=== PATIENT | female | born 1995 | race Caucasian/White ===

== ENCOUNTER 2017-01-24 20:51 | Emergency (ER) | payer MEDICAID, OTHER ==
[~2017-01-24] VITALS: Ht 160 cm; Wt 98.7 kg
[~2017-01-24 20:51] MED LIST: CIPR500T4 PO; FERR324T4 PO; PERC7.5T13 PO
[2017-01-24 20:56] VITALS: BP 137/77; PULSE 90; RESP 20; TEMP 98.3; O2SAT 100
[2017-01-24 21:20] VITALS: BP 117/71; PULSE 90; RESP 18; O2SAT 100
[2017-01-24] MEDS ORDERED: IBUP-232 PO (21:26)
[2017-01-24] MEDS ORDERED: PNV11TAB PO (21:26)
[2017-01-24] MEDS ORDERED: PERC5TAB12 PO (21:26)
--- NOTE | 2017-01-24 21:30 | PD ---
HPI Chief Complaint: Pain: Acute or Chronic Time Seen by Provider: 21:00 Travel History International Travel<30 days: No Contact w/Intl Traveler<30days: No Traveled to known affect area: No History of Present Illness HPI The patient is a 21-year-old female that at 3 PM today picked her daughter up and felt a pain along the left portion of her scar. The patient had a [address] Carrasco is her sales program manager. This was done at [facility]. She denies any nausea, vomiting or fever. The patient does have a history of kidney stones in the past but this is almost in the midline suprapubic area and involving the incision, slightly above the incision. She states the pain is a searing pain. She did not call Dr. Carrasco. She has not had any increased bleeding from the vagina. The patient also felt a similar pain earlier today when she got out of bed. PFSH Past Medical History ADHD: Yes Anemia: Yes Asthma: Yes Blood Disorders: No Anxiety: Yes Depression: Yes Heart Rhythm Problems: No Cancer: No Cardiovascular Problems: No High Cholesterol: No Chemotherapy: No Chest Pain: No Congestive Heart Failure: No COPD: No Diabetes: No Diminished Hearing: No Endocrine: No Gastrointestinal Disorders: No Genitourinary: Yes Hiatal Hernia: No Hypertension: No Immune Disorder: No Kidney Stones: Yes (TWICE BEFORE) Musculoskeletal: No Neurologic: Yes Psychiatric: No Reproductive: No Respiratory: Yes (ASTHMA, NO CURRENT PROBLEMS) Immunizations Current: Yes Radiation Therapy: No Seizures: Yes (1 SEIZURE A CHILD FROM FEVER) Sleep Apnea: No Thyroid Disease: No ?: Not : 0 Para: 0 Miscarriage: 0 : 0 Past Surgical History Body Medical Devices: URETER STENT Genitourinary Surgery: Yes (LITHOTRIPSY 02/04/13, LITHOTRIPSY: FEB, 2014) Other Surgery: No Social History Alcohol Use: Yes (RARELY) Tobacco Use: No Substance Use: No Allergies-Medications (Allergen,Severity, Reaction): Coded Allergies: Sulfa (Sulfonamide Antibiotics) (Unverified Allergy, Severe, RASH, VOMITING, 12/19/16) penicillin G (Unverified Allergy, Severe, Anaphylaxis, 12/19/16) amoxicillin (Unverified Adverse Reaction, Severe, Nausea/Vomiting, 12/19/16 ) Reported Meds & Prescriptions Reported Meds & Active Scripts Active Cipro (Ciprofloxacin HCl) 500 Mg Tab 500 Mg PO BID Cipro (Ciprofloxacin HCl) 500 Mg Tab 500 Mg PO BID Ferrous Sulfate 324 Mg Tab 324 Mg PO TID Percocet 7.5-325 mg (Oxycodone-Acetaminophen 7.5-325 mg) Oxycodone 7.5/325 Acetaminophen Tab 1-2 Tab PO Q4H PRN FOR PAIN Review of Systems Except as stated in HPI: all other systems reviewed are Neg Physical Exam Narrative GENERAL: The patient is alert, oriented 3 and moderate apparent distress with her incisional pain. Her vital signs are normal. The patient is comfortable at rest. SKIN: Focused skin assessment warm/dry. The incision shows no erythema, appears clean and no masses are noted around the incision on palpation. There is tenderness slightly to the right of midline on her incision. There is no drainage from the incision. HEAD: Atraumatic. Normocephalic. EYES: Pupils equal and round. No scleral icterus. No injection or drainage. ENT: No nasal bleeding or discharge. Mucous membranes pink and moist. NECK: Trachea midline. No JVD. CARDIOVASCULAR: Regular rate and rhythm. No murmur appreciated. RESPIRATORY: No accessory muscle use. Clear to auscultation. Breath sounds equal bilaterally. GASTROINTESTINAL: Abdomen soft, with slight tenderness above slightly to the right of midline of the incision to direct palpation, nondistended. Hepatic and splenic margins not palpable. No guarding or rebound is present. MUSCULOSKELETAL: No obvious deformities. No clubbing. No cyanosis. No edema. NEUROLOGICAL: Awake and alert. No obvious cranial nerve deficits. Motor grossly within normal limits. Normal speech. PSYCHIATRIC: Appropriate mood and affect; insight and judgment normal. Data Data Last Documented VS Vital Signs Date Time Temp Pulse Resp B/P (MAP) Pulse Ox O2 Delivery O2 Flow Rate FiO2 01/24/17 20:56 98.3 90 20 137/77 (97) 100 MDM Medical Decision Making Medical Screen Exam Complete: Yes Emergency Medical Condition: Yes Medical Record Reviewed: Yes Differential Diagnosis Wound dehiscence, infected incision, failure to adequately rest postop Narrative Course The patient is likely overdoing her movements. She needs to rest and stay in bed. She can call Dr. Swift. Tomorrow morning. Tonight we will give her 1 mg Dilaudid and 4 mg Zofran IM. She will take 2 of the Percocet 5/325 every 4 hours, she is used to this amount of narcotics because she gets narcotics regularly for kidney stones. The patient is comfortable at rest and she should stay in bed tonight. She will not need some much pain medications that she simply stays in bed. Impression: Noncompliance to rest-incisional pain. Diagnosis Primary Impression: Incisional pain Additional Instructions: Stay in bed. The usual reason this happens is because you were overdoing it. Call Dr. Carrasco's office tomorrow. As you have been doing, take 2 Percocets every 4 hours if you needed for pain. Your incision will heal if you allow to heal. Med/Other Pt SpecificInfo: No Change to Meds Disposition: 01 DISCHARGE HOME Condition: Stable Bernabe Pickard MD Jan 24, 2017 21:30
[2017-01-24] MEDS ORDERED: ONDANSETRON HCL 4 MG/2 ML VIAL IM ONE (21:45)
[2017-01-24] MEDS ORDERED: HYDROmorphone HCL PF 1 MG/ML VIAL IM ONE (21:45)
[2017-01-24 22:08] VITALS: BP 118/59; PULSE 86; RESP 16; O2SAT 99
[2017-01-24 22:18] VITALS: RESP 16
== END 2017-01-24 22:25 | disposition home or self-care (01) ==
LOC: PHED 20:51
DX: O90.89 Other complications of the puerperium, not elsewhere classified (principal); G89.18 Other acute postprocedural pain; Z91.19 Patient's noncompliance with other medical treatment and regimen
CPT/HCPCS: 96372; 99284; J1170; J2405

== ENCOUNTER 2017-06-20 16:12 | Observation (INO) | payer MEDICAID ==
[~2017-06-20] VITALS: Ht 160 cm; Wt 101.0 kg
[2017-06-20] VITALS (7 sets, daily range): BP systolic 109–134; BP diastolic 58–76; PULSE 56–83; RESP 16–20; TEMP 97.8–98.5; O2SAT 99–100
[~2017-06-20 16:12] MED LIST changes: -CIPR500T4 PO; -FERR324T4 PO; +IBUP-232 PO; +PERC5TAB12 PO; -PERC7.5T13 PO; +PNV11TAB PO
[2017-06-20] MEDS ORDERED: ONDANSETRON HCL 4 MG/2 ML VIAL IVP ONE (18:15)
[2017-06-20] MEDS ORDERED: MORPHINE SULFATE 2 MG/ML INJ IV PUSH ONE (18:15)
[2017-06-20] MEDS ORDERED: SODIUM CHLORIDE 0.9% FLUSH 10 ML FLUSH IV FLUSH PRN ×2 (18:15→20:15)
--- NOTE | 2017-06-20 18:18 | PD ---
HPI Chief Complaint: Abdominal Pain Time Seen by Provider: 18:14 Travel History International Travel<30 days: No Contact w/Intl Traveler<30days: No Traveled to known affect area: No History of Present Illness HPI 21-year-old female here for evaluation of vertigo quadrant abdominal pain. The patient reports intermittent episodes of right upper quadrant pain that radiates to her back. She usually notices this pain after eating breakfast. Today at around 3 PM she ate a cookie and has had constant pain since then. Pain is severe, constant, sharp, worse with movements. She has felt nauseous but has not vomited today. No fever. No dysuria. Patient has had history of nephrolithiasis asked ureterolithiasis requiring lithotripsy. She states that this pain feels different. PFSH Past Medical History ADHD: Yes Anemia: Yes Asthma: Yes Blood Disorders: No Anxiety: Yes Depression: Yes Heart Rhythm Problems: No Cancer: No Cardiovascular Problems: No High Cholesterol: No Chemotherapy: No Chest Pain: No Congestive Heart Failure: No COPD: No Diabetes: No Diminished Hearing: No Endocrine: No Gastrointestinal Disorders: No Genitourinary: Yes Hiatal Hernia: No Hypertension: No Immune Disorder: No Implanted Vascular Access Dvce: Yes Kidney Stones: Yes (TWICE BEFORE) Musculoskeletal: No Neurologic: Yes Psychiatric: No Reproductive: No Respiratory: Yes (HX ASTHMA, NO CURRENT PROBLEMS) Immunizations Current: Yes Radiation Therapy: No Seizures: Yes (1 SEIZURE A CHILD FROM FEVER) Sleep Apnea: No Thyroid Disease: No Tetanus Vaccination: < 5 Years Influenza Vaccination: No ?: Not LMP: 06/12/17 : 1 Para: 1 Miscarriage: 0 : 0 Past Surgical History Body Medical Devices: URETER STENT Section: Yes (01/20/17) Genitourinary Surgery: Yes (LITHOTRIPSY 02/04/13, LITHOTRIPSY: FEB, 2014) Other Surgery: No Social History Alcohol Use: Yes (RARELY) Tobacco Use: No Substance Use: No Allergies-Medications (Allergen,Severity, Reaction): Coded Allergies: Sulfa (Sulfonamide Antibiotics) (Unverified Allergy, Severe, RASH, VOMITING, 06/20/17) penicillin G (Unverified Allergy, Severe, Anaphylaxis, 06/20/17) amoxicillin (Unverified Adverse Reaction, Severe, Nausea/Vomiting, 06/20/17 ) Reported Meds & Prescriptions Reported Meds & Active Scripts Active Review of Systems Except as stated in HPI: all other systems reviewed are Neg Physical Exam Narrative GENERAL: Well-developed, well-nourished, overweight, no apparent distress. SKIN: Focused skin assessment warm/dry. No rash. HEAD: Atraumatic. Normocephalic. EYES: Pupils equal and round. No scleral icterus. No injection or drainage. ENT: Mucous membranes pink and moist. NECK: Trachea midline. No JVD. CARDIOVASCULAR: Regular rate and rhythm. No murmur appreciated. RESPIRATORY: No accessory muscle use. Clear to auscultation. Breath sounds equal bilaterally. GASTROINTESTINAL: Abdomen soft, nondistended. Moderate right upper quadrant tenderness without peritoneal signs. Rest of abdomen is soft and nontender. Normal bowel sounds. MUSCULOSKELETAL: No obvious deformities. No clubbing. No cyanosis. No edema. NEUROLOGICAL: Awake and alert. No obvious cranial nerve deficits. Motor grossly within normal limits. Normal speech. PSYCHIATRIC: Appropriate mood and affect; insight and judgment normal. Data Data Last Documented VS Vital Signs Date Time Temp Pulse Resp B/P (MAP) Pulse Ox O2 Delivery O2 Flow Rate FiO2 06/20/17 19:00 18 06/20/17 19:00 59 117/71 (86) 100 Room Air 06/20/17 16:22 97.8 Orders Orders Complete Blood Count With Diff (06/20/17 18:14) Comprehensive Metabolic Panel (06/20/17 18:14) Lipase (06/20/17 18:14) Prothrombin Time / Inr (Pt) (06/20/17 18:14) Act Partial Throm Time (Ptt) (06/20/17 18:14) Urinalysis - C+S If Indicated (06/20/17 18:14) Us Abdomen Gallbladder (06/20/17 ) Iv Access Insert/Monitor (06/20/17 18:14) Ecg Monitoring (06/20/17 18:14) Oximetry (06/20/17 18:14) Ondansetron Inj (Zofran Inj) (06/20/17 18:15) Sodium Chlor 0.9% 1000 Ml Inj (Ns 1000 M (06/20/17 18:14) Sodium Chloride 0.9% Flush (Ns Flush) (06/20/17 18:15) Ed Urine Pregnancytest Poc (06/20/17 18:14) Morphine Inj (Morphine Inj) (06/20/17 18:15) Ciprofloxacin 400 Mg Premix (Cipro 400 M (06/20/17 19:45) Metronidazole 500 Mg Inj (Flagyl 500 Mg (06/20/17 19:45) Labs Laboratory Tests Test 06/20/17 18:30 White Blood Count 6.3 TH/MM3 Red Blood Count 4.47 MIL/MM3 Hemoglobin 12.2 GM/DL Hematocrit 36.4 % Mean Corpuscular Volume 81.5 FL Mean Corpuscular Hemoglobin 27.2 PG Mean Corpuscular Hemoglobin Concent 33.4 % Red Cell Distribution Width 14.4 % Platelet Count 461 TH/MM3 Mean Platelet Volume 7.0 FL Neutrophils (%) (Auto) 54.5 % Lymphocytes (%) (Auto) 36.1 % Monocytes (%) (Auto) 5.4 % Eosinophils (%) (Auto) 1.8 % Basophils (%) (Auto) 2.2 % Neutrophils # (Auto) 3.5 TH/MM3 Lymphocytes # (Auto) 2.3 TH/MM3 Monocytes # (Auto) 0.3 TH/MM3 Eosinophils # (Auto) 0.1 TH/MM3 Basophils # (Auto) 0.1 TH/MM3 CBC Comment DIFF FINAL Differential Comment Prothrombin Time 10.1 SEC Prothromb Time International Ratio 1.0 RATIO Activated Partial Thromboplast Time 26.8 SEC Urine Color STRAW Urine Turbidity CLEAR Urine pH 6.0 Urine Specific [place] 1.010 Urine Protein NEG mg/dL Urine Glucose (UA) NEG mg/dL Urine Ketones NEG mg/dL Urine Occult Blood NEG Urine Nitrite NEG Urine Bilirubin NEG Urine Leukocyte Esterase NEG Urine RBC 0-3 /hpf Urine WBC 0-2 /hpf Urine Squamous Epithelial Cells 0-5 /hpf Microscopic Urinalysis Comment CULT NOT INDICATED Blood Urea Nitrogen 15 MG/DL Creatinine 0.66 MG/DL Random Glucose 103 MG/DL Total Protein 8.8 GM/DL Albumin 4.0 GM/DL Calcium Level 9.4 MG/DL Alkaline Phosphatase 80 U/L Aspartate Amino Transf (AST/SGOT) 31 U/L Alanine Aminotransferase (ALT/SGPT) 33 U/L Total Bilirubin 0.3 MG/DL Sodium Level 135 MEQ/L Potassium Level 4.5 MEQ/L Chloride Level 104 MEQ/L Carbon Dioxide Level 25.8 MEQ/L Anion Gap 5 MEQ/L Estimat Glomerular Filtration Rate 112 ML/MIN Lipase 167 U/L [facility] Medical Decision Making Medical Screen Exam Complete: Yes Emergency Medical Condition: Yes Medical Record Reviewed: Yes Differential Diagnosis Cholecystitis, cholelithiasis, hepatobiliary disease, pancreatitis, peptic ulcer disease, pyelonephritis, nephrolithiasis, ureterolithiasis Narrative Course Vital signs show heart rate 83, blood pressure 134/72, pulse ox 99% on room air , oral temp of 97.8F. CBC: WBC 6.3, hemoglobin 12.2, hematocrit 36.4, platelets 461. CMP is unremarkable. Lipase is 167. UA is completely within normal limits, no hematuria or signs of infection. Right upper quadrant ultrasound: CONCLUSION: Cholelithiasis and findings highly suspicious for acute cholecystitis in the appropriate clinical setting. The liver is slightly echogenic which maybe due to fatty infiltration and or hepatocellular dysfunction. Patient and the patient's significant other were made aware of all findings. She continues to have right upper quadrant abdominal pain, however states it is improved after receiving morphine. She does have a moderate amount of tenderness over the right upper quadrant with a Acosta sign. According to a hospital memorandum published by the general surgeons that take call, they did not want to be contacted emergently for acute cholecystitis, therefore the patient will be started on IV antibiotics and admitted to the medical service with a routine consult placed to general surgery. Patient was started on Cipro and Flagyl. Case discussed with hospitalist Dr. Montano who will admit the patient to the hospitalist service for Gen. surgery consultation. Diagnosis Primary Impression: Acute cholecystitis Admitting Information Admitting Physician Requests: Observation Otis Ryder MD Jun 20, 2017 18:18
[2017-06-20 18:43] LABS: AUTOMATED NEUTROPHIL # 3.5 TH/MM3 (1.8-7.7); BASOPHIL # 0.1 TH/MM3 (0-0.2); BASOPHIL % 2.2 % (0.0-2.0); EOSINOPHIL # 0.1 TH/MM3 (0-0.4); EOSINOPHIL % 1.8 % (0.0-4.0); HEMATOCRIT 36.4 % (35.0-46.0); HEMOGLOBIN 12.2 GM/DL (11.6-15.3); LYMPH % 36.1 % (9.0-44.0); LYMPHOCYTE # 2.3 TH/MM3 (1.0-4.8); MEAN CELL VOLUME 81.5 FL (80.0-100.0); MEAN CORPUSCULAR HEMOGLOBIN 27.2 PG (27.0-34.0); MEAN CORPUSCULAR HGB CONC 33.4 % (32.0-36.0); MONO % 5.4 % (0.0-8.0); MONOCYTE # 0.3 TH/MM3 (0-0.9); NEUT % 54.5 % (16.0-70.0); PLATELET COUNT 461 TH/MM3 (150-450); RED BLOOD COUNT 4.47 MIL/MM3 (4.00-5.30); RED CELL DISTRIBUTION WIDTH 14.4 % (11.6-17.2); WHITE BLOOD COUNT 6.3 TH/MM3 (4.0-11.0)
[2017-06-20 18:45] LABS: BILIRUBIN, URINE NEG (NEG); BLOOD, URINE NEG (NEG); GLUCOSE,URINE NEG (NEG); KETONE, URINE NEG (NEG); NITRITE,URINE NEG (NEG); URINE LEUKOCYTE ESTERASE NEG (NEG)
[2017-06-20] MEDS: SODIUM CHLOR 0.9% 1000 ML INJ 1,000 ML IV SCH ×3 (18:54→22:14)
[2017-06-20 18:55] LABS: CHLORIDE 104 MEQ/L (98-107); SODIUM (NA) 135 MEQ/L (136-145)
[2017-06-20 18:58] LABS: CALCIUM 9.4 MG/DL (8.5-10.1)
[2017-06-20 18:59] LABS: BICARBONATE 25.8 MEQ/L (21.0-32.0); BLOOD UREA NITROGEN 15 MG/DL (7-18); GLUCOSE,RANDOM 103 MG/DL (74-106)
[2017-06-20 19:00] LABS: PROTHROMBIN TIME - PATIENT 10.1 SEC (9.8-11.6)
[2017-06-20 19:01] LABS: ALT (GPT) 33 U/L (10-53); AST (GOT) 31 U/L (15-37)
[2017-06-20 19:02] LABS: CREATININE 0.66 MG/DL (0.50-1.00); GLOMERULAR FILTRATION RATE 112 ML/MIN (>89)
[2017-06-20 19:03] LABS: TOTAL BILIRUBIN ADULT 0.3 MG/DL (0.2-1.0); TOTAL PROTEIN 8.8 GM/DL (6.4-8.2)
[2017-06-20 19:04] LABS: ALKALINE PHOSPHATASE 80 U/L (45-117)
[2017-06-20 19:11] LABS: URINE COLOR STRAW (YELLW/STRAW)
[2017-06-20 19:12] LABS: RBC, URINE 0-3 /hpf (0-3); SQUAMOUS EPITHELIAL CELL URINE 0-5 /hpf (0-5); WBC, URINE 0-2 /hpf (0-5)
--- NOTE | 2017-06-20 19:19 | RADRPT ---
EXAM DATE/TIME: 06/20/2017 18:37 [facility] COMPARISON: No previous studies available for comparison. INDICATIONS : Right upper quadrant pain. MEDICAL HISTORY : Renal calculi. Seizures. UTI. SURGICAL HISTORY : section. Lithotripsy. ENCOUNTER: Initial ACUITY: 2 weeks PAIN SCORE: 6/10 LOCATION: Right upper quadrant MEASUREMENTS: LIVER: 16.9 cm length COMMON DUCT: 3 mm RIGHT KIDNEY: 8.6 x 4.6 x 5.7 cm FINDINGS: The liver is slightly echogenic which maybe due to fatty infiltration and or hepatocellular dysfuncti on. multiple gallstones are present in addition to sludge within the gallbladder. Pericholecystic flu id is seen. CONCLUSION: Cholelithiasis and findings highly suspicious for acute cholecystitis in the appropri ate clinical setting. The liver is slightly echogenic which maybe due to fatty infiltration and or he patocellular dysfunction. Tammie Singh MD on June 20, 2017 at 19:16 Board Certified Radiologist. This report was verified electronically.
[2017-06-20] MEDS ORDERED: CIPROFLOXACIN 400 MG PREMIX 200 ML IV ONE (19:45)
[2017-06-20] MEDS ORDERED: metroNIDAZOLE 500 MG INJ 100 ML IV ONE (19:45)
[2017-06-20] MEDS ORDERED: NALOXONE HCL 0.4 MG/ML AMP IV PUSH PRN (20:15)
[2017-06-20] MEDS: SODIUM CHLORIDE 0.9% FLUSH 10 ML FLUSH IV FLUSH SCH (22:15)
[2017-06-20] MEDS: MORPHINE SULFATE 2 MG/ML INJ IV PUSH PRN (23:31)
[2017-06-20] MEDS: ONDANSETRON HCL 4 MG/2 ML VIAL IVP PRN (23:31)
[2017-06-21] VITALS: BP 148/57; PULSE 65; RESP 20; TEMP 97.7; O2SAT 99
[2017-06-21] MEDS: metroNIDAZOLE 500 MG INJ 100 ML IV SCH ×4 (03:25→20:28)
[2017-06-21 04:00] VITALS: BP 95/53; PULSE 70; RESP 20; TEMP 98.2; O2SAT 99
[2017-06-21] MEDS: MORPHINE SULFATE 2 MG/ML INJ IV PUSH PRN ×3 (05:43→17:08)
[2017-06-21] MEDS: SODIUM CHLOR 0.9% 1000 ML INJ 1,000 ML IV SCH ×2 (05:45→16:03)
[2017-06-21 06:40] LABS: AUTOMATED NEUTROPHIL # 2.4 TH/MM3 (1.8-7.7); BASOPHIL % 0.3 % (0.0-2.0); EOSINOPHIL # 0.1 TH/MM3 (0-0.4); EOSINOPHIL % 2.2 % (0.0-4.0); HEMATOCRIT 31.4 % (35.0-46.0); HEMOGLOBIN 10.3 GM/DL (11.6-15.3); LYMPH % 43.6 % (9.0-44.0); LYMPHOCYTE # 2.1 TH/MM3 (1.0-4.8); MEAN CELL VOLUME 81.8 FL (80.0-100.0); MEAN CORPUSCULAR HEMOGLOBIN 26.7 PG (27.0-34.0); MEAN CORPUSCULAR HGB CONC 32.6 % (32.0-36.0); MONO % 6.5 % (0.0-8.0); MONOCYTE # 0.3 TH/MM3 (0-0.9); NEUT % 47.4 % (16.0-70.0); PLATELET COUNT 369 TH/MM3 (150-450); RED BLOOD COUNT 3.84 MIL/MM3 (4.00-5.30); RED CELL DISTRIBUTION WIDTH 14.1 % (11.6-17.2); WHITE BLOOD COUNT 4.9 TH/MM3 (4.0-11.0)
[2017-06-21 07:13] LABS: BICARBONATE 23.2 MEQ/L (21.0-32.0); CALCIUM 7.5 MG/DL (8.5-10.1); CREATININE 0.64 MG/DL (0.50-1.00)
[2017-06-21 07:30] VITALS: BP 113/72; PULSE 94; RESP 20; TEMP 96.1; O2SAT 100
[2017-06-21] MEDS: ONDANSETRON HCL 4 MG/2 ML VIAL IVP PRN ×2 (08:45→17:08)
[2017-06-21] MEDS: SODIUM CHLORIDE 0.9% FLUSH 10 ML FLUSH IV FLUSH SCH ×2 (09:00→20:29)
[2017-06-21] MEDS: CIPROFLOXACIN 400 MG PREMIX 200 ML IV SCH ×2 (09:23→20:29)
--- NOTE | 2017-06-21 09:34 | PD.CONS ---
cc: Tyrell Araujo MD HPI Service General Surgery Consult Requested By Dr. Montano Reason for Consult Acute cholecystitis Primary Care Physician No Primary Care Physician History of Present Illness This is a 21-year-old female with a past medical history of asthma and kidney stones. The patient reports that she has had a dull right upper quadrant pain that radiates to her back for a couple weeks. She reports that yesterday around 3 PM she ate a cookie in the right upper quadrant pain persisted. She reports that this pain radiates to her back. She recently pain 8 out of 10 and is constant. She reports associated nausea without any vomiting. She denies any recent traveling. She denies any recent sick contacts that she knows of. An ultrasound of the gallbladder was taken which shows cholelithiasis and a concern for acute cholecystitis. The patient's laboratory work is essentially unremarkable. A General Surgery consultation has been requested for evaluation for laparoscopic cholecystectomy. Review of Systems Constitutional: DENIES: Fatigue, Weight gain Endocrine: DENIES: Polydipsia, Polyuria, Polyphagia Eyes: DENIES: Diplopia, Eye inflammation Ears, nose, mouth, throat: DENIES: Hearing loss Respiratory: DENIES: Apneas, Cough Cardiovascular: DENIES: Chest pain Gastrointestinal: COMPLAINS OF: Abdominal pain, Nausea, DENIES: Vomiting Genitourinary: DENIES: Urinary frequency Musculoskeletal: DENIES: Joint pain Integumentary: DENIES: Abnormal pigmentation Hematologic/lymphatic: DENIES: Bruising Immunologic/allergic: DENIES: Eczema Neurologic: DENIES: Abnormal gait, Headache Psychiatric: DENIES: Mood changes, Depression, Hallucinations Past Family Social History Past Medical History Kidney stones Asthma Past Surgical History Ureter stent placement Lithotripsy 2 ---01/20/2017 Reported Medications None Allergies: Coded Allergies: Sulfa (Sulfonamide Antibiotics) (Unverified Allergy, Severe, RASH, VOMITING, 06/20/17) penicillin G (Unverified Allergy, Severe, Anaphylaxis, 06/20/17) amoxicillin (Unverified Adverse Reaction, Severe, Nausea/Vomiting, 06/20/17 ) Active Ordered Medications Current Medications Medications (Trade) Dose Ordered Sig/An Route Start Time Stop Time Status Last Admin (NS Flush) 2 ml UNSCH PRN IV FLUSH 06/20/17 18:15 Sodium Chloride 1,000 ml @ 100 mls/hr Q10H IV 06/20/17 20:03 06/21/17 05:45 (NS Flush) 2 ml UNSCH PRN IV FLUSH 06/20/17 20:15 (NS Flush) 2 ml BID IV FLUSH 06/20/17 21:00 (Zofran Inj) 4 mg Q6H PRN IVP 06/20/17 20:15 06/21/17 08:45 (Narcan Inj) 0.4 mg UNSCH PRN IV PUSH 06/20/17 20:15 (Morphine Inj) 2 mg Q4H PRN IV PUSH 06/20/17 20:15 06/21/17 05:43 Ciprofloxacin/ Dextrose 200 ml @ 200 mls/hr Q12H IV 06/21/17 09:00 06/21/17 09:23 Metronidazole 100 ml @ 100 mls/hr Q6H IV 06/21/17 02:00 06/21/17 08:45 Family History Great aunt had gallstones and her gallbladder removed Social History Denies tobacco use Denies EtOH use Denies illicit drug use She is currently not working or in school. Physical Exam Vital Signs Vital Signs Date Time Temp Pulse Resp B/P (MAP) Pulse Ox O2 Delivery O2 Flow Rate FiO2 06/21/17 07:30 96.1 94 20 113/72 (86) 100 06/21/17 04:00 98.2 70 20 95/53 (67) 99 06/21/17 00:00 97.7 65 20 148/57 (87) 99 06/20/17 21:46 67 06/20/17 21:30 98.5 58 20 110/58 (75) 100 06/20/17 21:20 98.5 58 20 110/58 (75) 100 06/20/17 21:02 80 18 109/63 (78) 98 06/20/17 20:00 56 18 110/76 (87) 100 Room Air 06/20/17 19:00 18 06/20/17 19:00 59 18 117/71 (86) 100 Room Air 06/20/17 19:00 18 06/20/17 18:57 Room Air 06/20/17 16:22 97.8 83 16 134/72 92 99 Physical Exam GENERAL: A 21-year-old female resting in bed in no acute distress. SKIN: Warm and dry. HEAD: Atraumatic. Normocephalic. EYES: Pupils equal and round. No scleral icterus. No injection or drainage. ENT: No nasal bleeding or discharge. Mucous membranes pink and moist. NECK: Trachea midline. CARDIOVASCULAR: Regular rate and rhythm. RESPIRATORY: No accessory muscle use. Clear to auscultation. Breath sounds equal bilaterally. GASTROINTESTINAL: Abdomen soft, non-distended. Obese abdomen with striae. RUQ tenderness with palpation. Well healed low transverse scar. No visible hernias. MUSCULOSKELETAL: Extremities without clubbing, cyanosis, or edema. No obvious deformities. NEUROLOGICAL: Awake and alert. No obvious cranial nerve deficits. Motor grossly within normal limits. Five out of 5 muscle strength in the arms and legs. Normal speech. PSYCHIATRIC: Appropriate mood and affect; insight and judgment normal. Laboratory Laboratory Tests Test 06/20/17 18:30 06/21/17 05:22 White Blood Count 6.3 4.9 Red Blood Count 4.47 3.84 Hemoglobin 12.2 10.3 Hematocrit 36.4 31.4 Mean Corpuscular Volume 81.5 81.8 Mean Corpuscular Hemoglobin 27.2 26.7 Mean Corpuscular Hemoglobin Concent 33.4 32.6 Red Cell Distribution Width 14.4 14.1 Platelet Count 461 369 Mean Platelet Volume 7.0 7.0 Neutrophils (%) (Auto) 54.5 47.4 Lymphocytes (%) (Auto) 36.1 43.6 Monocytes (%) (Auto) 5.4 6.5 Eosinophils (%) (Auto) 1.8 2.2 Basophils (%) (Auto) 2.2 0.3 Neutrophils # (Auto) 3.5 2.4 Lymphocytes # (Auto) 2.3 2.1 Monocytes # (Auto) 0.3 0.3 Eosinophils # (Auto) 0.1 0.1 Basophils # (Auto) 0.1 0.0 CBC Comment DIFF FINAL DIFF FINAL Differential Comment Prothrombin Time 10.1 Prothromb Time International Ratio 1.0 Activated Partial Thromboplast Time 26.8 Urine Color STRAW Urine Turbidity CLEAR Urine pH 6.0 Urine Specific [place] 1.010 Urine Protein NEG Urine Glucose (UA) NEG Urine Ketones NEG Urine Occult Blood NEG Urine Nitrite NEG Urine Bilirubin NEG Urine Leukocyte Esterase NEG Urine RBC 0-3 Urine WBC 0-2 Urine Squamous Epithelial Cells 0-5 Microscopic Urinalysis Comment CULT NOT INDICATED Blood Urea Nitrogen 15 11 Creatinine 0.66 0.64 Random Glucose 103 101 Total Protein 8.8 Albumin 4.0 Calcium Level 9.4 7.5 Alkaline Phosphatase 80 Aspartate Amino Transf (AST/SGOT) 31 Alanine Aminotransferase (ALT/SGPT) 33 Total Bilirubin 0.3 Sodium Level 135 141 Potassium Level 4.5 3.4 Chloride Level 104 110 Carbon Dioxide Level 25.8 23.2 Anion Gap 5 8 Estimat Glomerular Filtration Rate 112 116 Lipase 167 Result Diagram: 06/21/17 0522 06/21/17 0522 Imaging Last 48 hours Impressions Gall Bladder Ultrasound 06/20/17 0000 Signed Impressions: Service Date/Time: Tuesday, June 20, 2017 18:37 - CONCLUSION: Cholelithiasis and findings highly suspicious for acute cholecystitis in the appropriate clinical setting. The liver is slightly echogenic which maybe due to fatty infiltration and or hepatocellular dysfunction. Tammie Singh MD Assessment and Plan Assessment and Plan 21 year old female with cholelithiasis and acute cholecystitis -Plan for laparoscopic cholecystectomy this afternoon -Remain NPO -Obtain consents -Continue IVF -Continue antibiotics -Procedure explained in detail; all questions answered -Thank you for this consult; We will continue to follow Discussed Condition With Dr. Van Amanda Attending Statement patient seen at bedside acute cholecystitis with cholelithiasis will plan for or discussed details of procedure Attestation The exam, history, and the medical decision-making described in the above note were completed with the assistance of the mid-level provider. I reviewed and agree with the findings presented. I attest that I had a [id number] encounter with the patient on the same day, and personally performed and documented my assessment and findings in the medical record. Claritza Lafleur Jun 21, 2017 09:34 Tyrell Araujo MD Jun 25, 2017 16:56
--- NOTE | 2017-06-21 10:25 | HHI.HP ---
[facility] Service [facility] ([place], [place])ists Primary Care Physician No Primary Care Physician Admission Diagnosis acute cholecystitis Diagnoses: Chief Complaint: Right upper quadrant pain with nausea vomiting Travel History International Travel<30 Days: No Contact w/Intl Traveler <30 Da: No Traveled to Known Affected Are: No History of Present Illness 21 years old obese female presented to the ED with history of one-week right upper quadrant pain comes and goes no relation to food 7 out of 10 right now, multiple episodes of vomiting, no fever or chills no diarrhea no constipation no dysuria, in the ED CT scan of the abdomen revealed cholecystitis, patient started on Cipro Flagyl, consult surgery Review of Systems All systems reviewed and was positive for what is mentioned in history of present illness otherwise negative Past Family Social History Past Medical History Kidney stone status post lithotripsy Past Surgical History and tooth removal Allergies: Coded Allergies: Sulfa (Sulfonamide Antibiotics) (Unverified Allergy, Severe, RASH, VOMITING, 06/20/17) penicillin G (Unverified Allergy, Severe, Anaphylaxis, 06/20/17) amoxicillin (Unverified Adverse Reaction, Severe, Nausea/Vomiting, 06/20/17 ) Family History Review with the patient,not aware of significant medical history runs in his family Social History Denied tobacco alcohol or illicit drug abuse Physical Exam Vital Signs Vital Signs Date Time Temp Pulse Resp B/P (MAP) Pulse Ox O2 Delivery O2 Flow Rate FiO2 06/21/17 07:30 96.1 94 20 113/72 (86) 100 06/21/17 04:00 98.2 70 20 95/53 (67) 99 06/21/17 00:00 97.7 65 20 148/57 (87) 99 06/20/17 21:46 67 06/20/17 21:30 98.5 58 20 110/58 (75) 100 06/20/17 21:20 98.5 58 20 110/58 (75) 100 06/20/17 21:02 80 18 109/63 (78) 98 06/20/17 20:00 56 18 110/76 (87) 100 Room Air 2/14/18 19:00 18 06/20/17 19:00 59 18 117/71 (86) 100 Room Air 06/20/17 19:00 18 06/20/17 18:57 Room Air 06/20/17 16:22 97.8 83 16 134/72 (92) 99 Physical Exam GENERAL: This is a well-nourished, well-developed patient, in no apparent distress. SKIN: No rashes, warm and dry HEAD: Atraumatic. Normocephalic. EYES: Pupils equal round and reactive. Extraocular motions intact. No scleral icterus. ENT: Nose without bleeding, or drainage, Airway patent. NECK: Trachea midline. Supple CARDIOVASCULAR: Regular rate and rhythm without murmurs, gallops, or rubs. RESPIRATORY: Fair air entry bilaterally. No wheezes, rales, or rhonchi. GASTROINTESTINAL: Abdomen soft, right upper quadrant tenderness, nondistended. Positive bowel sounds MUSCULOSKELETAL: Extremities without clubbing, cyanosis, or edema. Pedal pulses appreciated NEUROLOGICAL: Awake and alert. Moves all extremity. Normal speech.no focal neurological deficit Laboratory Laboratory Tests Test 06/20/17 18:30 06/21/17 05:22 White Blood Count 6.3 4.9 Red Blood Count 4.47 3.84 Hemoglobin 12.2 10.3 Hematocrit 36.4 31.4 Mean Corpuscular Volume 81.5 81.8 Mean Corpuscular Hemoglobin 27.2 26.7 Mean Corpuscular Hemoglobin Concent 33.4 32.6 Red Cell Distribution Width 14.4 14.1 Platelet Count 461 369 Mean Platelet Volume 7.0 7.0 Neutrophils (%) (Auto) 54.5 47.4 Lymphocytes (%) (Auto) 36.1 43.6 Monocytes (%) (Auto) 5.4 6.5 Eosinophils (%) (Auto) 1.8 2.2 Basophils (%) (Auto) 2.2 0.3 Neutrophils # (Auto) 3.5 2.4 Lymphocytes # (Auto) 2.3 2.1 Monocytes # (Auto) 0.3 0.3 Eosinophils # (Auto) 0.1 0.1 Basophils # (Auto) 0.1 0.0 CBC Comment DIFF FINAL DIFF FINAL Differential Comment Prothrombin Time 10.1 Prothromb Time International Ratio 1.0 Activated Partial Thromboplast Time 26.8 Urine Color STRAW Urine Turbidity CLEAR Urine pH 6.0 Urine Specific [place] 1.010 Urine Protein NEG Urine Glucose (UA) NEG Urine Ketones NEG Urine Occult Blood NEG Urine Nitrite NEG Urine Bilirubin NEG Urine Leukocyte Esterase NEG Urine RBC 0-3 Urine WBC 0-2 Urine Squamous Epithelial Cells 0-5 Microscopic Urinalysis Comment CULT NOT INDICATED Blood Urea Nitrogen 15 11 Creatinine 0.66 0.64 Random Glucose 103 101 Total Protein 8.8 Albumin 4.0 Calcium Level 9.4 7.5 Alkaline Phosphatase 80 Aspartate Amino Transf (AST/SGOT) 31 Alanine Aminotransferase (ALT/SGPT) 33 Total Bilirubin 0.3 Sodium Level 135 141 Potassium Level 4.5 3.4 Chloride Level 104 110 Carbon Dioxide Level 25.8 23.2 Anion Gap 5 8 Estimat Glomerular Filtration Rate 112 116 Lipase 167 Result Diagram: 06/21/1722 06/21/17 0522 Imaging Last Impressions Gall Bladder Ultrasound 06/20/17 0000 Signed Impressions: Service Date/Time: Tuesday, June 20, 2017 18:37 - CONCLUSION: Cholelithiasis and findings highly suspicious for acute cholecystitis in the appropriate clinical setting. The liver is slightly echogenic which maybe due to fatty infiltration and or hepatocellular dysfunction. Tammie Singh MD Caphemalathai VTE Risk Assessment Caprini VTE Risk Assessment: No/Low Risk (score <= 1) Caprini Risk Assessment Model Point Value = 1 Point Value = 2 Point Value = 3 Point Value = 5 Age 41-60 Minor surgery BMI > 25 kg/m2 Swollen legs Varicose veins or History of unexplained or recurrent spontaneous Oral contraceptives or hormone replacement Sepsis (< 1 month) Serious lung disease, including pneumonia (< 1 month) Abnormal pulmonary function Acute myocardial infarction Congestive heart failure (< 1 month) History of inflammatory bowel disease Medical patient at bed rest Age 61-74 Arthroscopic surgery Major open surgery (> 45 min) Laparoscopic surgery (> 45 min) Malignancy Confined to bed (> 72 hours) Immobilizing plaster cast Central venous access Age >= 75 History of VTE Family history of VTE Factor V Leiden Prothrombin [id number] Lupus anticoagulant Anticardiolipin antibodies Elevated serum homocysteine Heparin-induced thrombocytopenia Other congenital or acquired thrombophilia Stroke (< 1 month) Elective arthroplasty Hip, pelvis, or leg fracture Acute spinal cord injury (< 1 month) Prophylaxis Regimen Total Risk Factor Score Risk Level Prophylaxis Regimen 0-1 Low Early ambulation 2 Moderate Order ONE of the following: *Sequential Compression Device (SCD) *Heparin 5000 units SQ BID 3-4 Higher Order ONE of the following medications: *Heparin 5000 units SQ TID *Enoxaparin/Lovenox 40 mg SQ daily (WT < 150 kg, CrCl > 30 mL/min) *Enoxaparin/Lovenox 30 mg SQ daily (WT < 150 kg, CrCl > 10-29 mL/min) *Enoxaparin/Lovenox 30 mg SQ BID (WT < 150 kg, CrCl > 30 mL/min) AND/OR *Sequential Compression Device (SCD) 5 or more Highest Order ONE of the following medications: *Heparin 5000 units SQ TID (Preferred with Epidurals) *Enoxaparin/Lovenox 40 mg SQ daily (WT < 150 kg, CrCl > 30 mL/min) *Enoxaparin/Lovenox 30 mg SQ daily (WT < 150 kg, CrCl > 10-29 mL/min) *Enoxaparin/Lovenox 30 mg SQ BID (WT < 150 kg, CrCl > 30 mL/min) AND *Sequential Compression Device (SCD) Assessment and Plan Assessment and Plan 21 years old obese female presented with right upper quadrant pain with nausea and vomiting, CT scan of the abdomen personally reviewed by me showed cholelithiasis with cholecystitis, will admit for IV hydration, pain management with morphine, surgery consult for cholecystitis, Cipro Flagyl. Discussed with the patient and her Physician Certification 2 Midnight Certification Type: Admission for Inpatient Services Order for Inpatient Services The services are ordered in accordance with Medicare regulations or non- Medicare payer requirements, as applicable. In the case of services not specified as inpatient-only, they are appropriately provided as inpatient services in accordance with the 2-midnight benchmark. Estimated LOS (days): 2 days is the estimated time the patient will need to remain in the hospital, assuming treatment plan goals are met and no additional complications. Post-Hospital Plan: Home Grayson Ramirez MD Jun 21, 2017 10:25
[2017-06-21] MEDS: BUPIVACAINE/EPINEPHRINE 0.25% 50 ML VIAL ONE ×2 (11:34→15:00)
[2017-06-21] MEDS ORDERED: fentaNYL CITRATE 250 MCG/5 ML AMP ONE (13:44)
--- NOTE | 2017-06-21 14:22 | HHI.PR ---
Immediate Post Op Note Procedure Date: Jun 21, 2017 Pre Op Diagnosis: symptomatic cholelithiasis Post Op Diagnosis: same Surgeon: Tyrell Araujo MD Crew Manager(s): see or sheet Procedure: lap chio Findings: distended gallbadder Complications: none Specimen(s) removed: gallbladder Anesthesia: General Drains: None Patient to: PACU Patient Condition: Good Tyrell Araujo MD Jun 21, 2017 14:21
[2017-06-21] MEDS ORDERED: LORazepam 2 MG/ML VIAL ONE (15:18)
[2017-06-21] MEDS ORDERED: PROMETHAZINE INJ 25 MG/ML VIAL ONE (15:27)
[2017-06-21] MEDS ORDERED: HYDROmorphone HCL PF 2 MG/ML VIAL ONE (15:28)
[2017-06-21] MEDS ORDERED: BUPIVACAINE/EPINEPHRINE 0.25% PF 30 ML VIAL INFIL ONE (16:00)
[2017-06-21 17:15] VITALS: BP 113/58; PULSE 65; RESP 20; TEMP 97.9; O2SAT 100
[2017-06-21 20:00] VITALS: BP 108/66; PULSE 75; RESP 20; TEMP 98.6; O2SAT 100
[2017-06-21] MEDS: oxyCODONE/ACETAMINOPHEN 5 MG/325 MG TAB PO PRN (20:29)
[2017-06-22] VITALS: BP 90/52; PULSE 80; RESP 18; TEMP 97; O2SAT 96
[2017-06-22] MEDS: metroNIDAZOLE 500 MG INJ 100 ML IV SCH ×2 (02:13→09:16)
[2017-06-22] MEDS: SODIUM CHLOR 0.9% 1000 ML INJ 1,000 ML IV SCH (02:14)
[2017-06-22] MEDS: oxyCODONE/ACETAMINOPHEN 5 MG/325 MG TAB PO PRN ×2 (02:14→08:03)
[2017-06-22] MEDS: ONDANSETRON HCL 4 MG/2 ML VIAL IVP PRN ×2 (03:05→08:03)
[2017-06-22] MEDS: MORPHINE SULFATE 2 MG/ML INJ IV PUSH PRN ×2 (03:05→09:17)
[2017-06-22 04:00] VITALS: BP 90/52; PULSE 80; RESP 18; TEMP 97; O2SAT 96
--- NOTE | 2017-06-22 07:46 | HHI.PR ---
Subjective Subjective Notes nausea and pain last night. seen sleeping this am, doing better Objective Vitals/I&O Vital Signs Date Time Temp Pulse Resp B/P (MAP) Pulse Ox O2 Delivery O2 Flow Rate FiO2 06/22/17 00:00 97.0 80 18 90/52 (65) 96 06/21/17 16:25 Nasal Cannula 3 Radiology Last 48 hours Impressions Gall Bladder Ultrasound 06/20/17 0000 Signed Impressions: Service Date/Time: Tuesday, June 20, 2017 18:37 - CONCLUSION: Cholelithiasis and findings highly suspicious for acute cholecystitis in the appropriate clinical setting. The liver is slightly echogenic which maybe due to fatty infiltration and or hepatocellular dysfunction. Tammie Singh MD Lungs: Clear Abdomen: Other (soft incisions c/d/i) A/P Assessment and Plan POD 1 Lap chio plan advance diet oob pain control d/c planning later today if tolerating diet Tyrell Araujo MD Jun 22, 2017 07:46
[2017-06-22 08:00] VITALS: BP 104/77; PULSE 56; RESP 16; TEMP 98; O2SAT 96
[2017-06-22] MEDS ORDERED: METOCLOPRAMIDE HCL 10 MG/2 ML VIAL IM SCH (08:00)
[2017-06-22] MEDS: CIPROFLOXACIN 400 MG PREMIX 200 ML IV SCH (09:16)
[2017-06-22] MEDS: SODIUM CHLORIDE 0.9% FLUSH 10 ML FLUSH IV FLUSH SCH (09:17)
[2017-06-22 09:22] VITALS: RESP 20
--- NOTE | 2017-06-22 11:04 | HHI.DCPOC ---
Discharge Care Plan Diagnosis: (1) Acute cholecystitis Goals to Promote Your Health * To prevent worsening of your condition and complications * To maintain your health at the optimal level Directions to Meet Your Goals Take your medications as prescribed Follow your dietary instruction Follow activity as directed Keep your appointments as scheduled Take your immunizations and boosters as scheduled If your symptoms worsen call your PCP, if no PCP go to Urgent Care Center or Emergency Room Smoking is Dangerous to Your Health. Avoid second hand smoke Call the 24-hour hour crisis hotline for domestic abuse at Denise Madrid MD Jun 22, 2017 11:04
[2017-06-22] MEDS ORDERED: TYLETAB34 PO (11:05)
--- NOTE | 2017-06-22 11:56 | MP ---
cc: TYRELL ARAUJO MD DATE OF SURGERY: 06/21/2017. PREOPERATIVE DIAGNOSIS: Acute cholecystitis with cholelithiasis. POSTOPERATIVE DIAGNOSIS: Acute cholecystitis with cholelithiasis. OPERATIVE PROCEDURE PERFORMED: Laparoscopic cholecystectomy. SURGEON: Tyrell Araujo MD. ICT BUSINESS DEVELOPMENT MANAGER: See OR sheet. ANESTHESIA: General endotracheal anesthesia. IV FLUIDS: See anesthesia sheet. ESTIMATED BLOOD LOSS: 5 cc. DRAINS: None. COMPLICATIONS: None. WOUND CLASSIFICATION: Clean / contaminated. SPECIMENS: Gallbladder. FINDINGS: Distended gallbladder with multiple stones. Multiple adhesions to gallbladder. INDICATIONS FOR THE PROCEDURE: The patient is a 21-year-old female who presented with acute onset of right upper quadrant abdominal pain. She had further evaluation including ultrasound showing concern for cholelithiasis, acute cholecystitis; therefore, decision was for operative intervention including laparoscopic cholecystectomy. DESCRIPTION OF THE PROCEDURE IN DETAIL: The patient was taken to the operating room suite and placed in the supine position. She was prepped and draped in the usual sterile fashion after induction with general endotracheal anesthesia. A brief time out was done stating the correct patient, procedure and surgical site and we were all in agreement with this. Attention was first directed to the umbilicus where a 5 mm incision was made with an 11 blade. Local anesthetic injected. A 5 mm Visiport was used with a scope to enter the abdomen safely. The abdomen was insufflated to 15 mmHg pneumoperitoneum. On cursory inspection, no evidence of injury. Three other trocars were placed including a 12 mm epigastric followed by two 5 mm right subcostal ports. The patient was placed in reverse Trendelenburg position and planed to the left. The gallbladder was identified and the fundus was grasped. There were noted to be multiple adhesions to the gallbladder and the gallbladder was acutely inflamed. The adhesions were taken down with the hook Bovie electrocautery. A [place] grasper was used as well. The cystic duct and cystic artery were dissected out in the usual fashion. A few clips were placed proximal and one distal to the cystic duct and cystic artery. At the smaller side branches also a clip placed as well to the arterial structure for hemostasis. transected cystic duct and cystic artery. The gallbladder was taken off the gallbladder fossa with Bovie electrocautery. Hemostasis was obtained to the gallbladder fossa. The abdomen was irrigated until the effluent was clear. The gallbladder was placed in an EndoCatch bag and removed from the gallbladder through the epigastric port. All pneumoperitoneum was removed. The abdomen was desufflated. The epigastric port was closed with #0 Vicryl to the fascia followed by 4-0 Monocryl subcuticular sutures. Sterile dressings including Mastisol and Steri-Strips were placed. No complications. All operative counts were correct. The patient was extubated and taken to the post-anesthesia care unit. MD BOUCHRA Loco/BARON /3:18 PM /11:38 AM
[2017-06-22] MEDS ORDERED: NEOSTIGMINE 5 MG/5 ML SYRINGE IV PUSH ONE (12:00)
[2017-06-22] MEDS ORDERED: PROPOFOL 200 MG/20 ML AMP IV ONE (12:00)
[2017-06-22] MEDS ORDERED: ROCURONIUM INJ 50 MG/5 ML VIAL IV ONE (12:00)
[2017-06-22] MEDS ORDERED: ONDANSETRON HCL 4 MG/2 ML VIAL IV PUSH ONE (12:00)
[2017-06-22] MEDS ORDERED: LIDOCAINE HCL 1% PF 5 ML SYRINGE OTHER ONE (12:00)
[2017-06-22] MEDS ORDERED: DEXAMETHASONE SOD PHOS 4 MG/ML VIAL IV ONE (12:00)
[2017-06-22] MEDS ORDERED: GLYCOPYRROLATE 1 MG/5 ML SYRINGE IV PUSH ONE (12:00)
--- NOTE | 2017-06-22 12:34 | HHI.DS ---
Discharge Summary Admission Date Jun 20, 2017 at 20:02 Discharge Date: Jun 22, 2017 Admitting Diagnosis acute cholecystitis (1) Acute cholecystitis ICD Code: K81.0 - Acute cholecystitis Status: Acute Procedures Cholecystectomy, laparoscopic Brief History - From Admission 21 years old obese female presented to the ED with history of one-week right upper quadrant pain comes and goes no relation to food 7 out of 10 right now, multiple episodes of vomiting, no fever or chills no diarrhea no constipation no dysuria, in the ED CT scan of the abdomen revealed cholecystitis, patient started on Cipro Flagyl, consult surgery CBC/BMP: 06/21/17 0522 06/21/17 0522 Significant Findings Laboratory Tests Test 06/20/17 18:30 06/21/17 05:22 Platelet Count 461 TH/MM3 (150-450) Basophils (%) (Auto) 2.2 % (0.0-2.0) Total Protein 8.8 GM/DL (6.4-8.2) Sodium Level 135 MEQ/L (136-145) Red Blood Count 3.84 MIL/MM3 (4.00-5.30) Hemoglobin 10.3 GM/DL (11.6-15.3) Hematocrit 31.4 % (35.0-46.0) Mean Corpuscular Hemoglobin 26.7 PG (27.0-34.0) Calcium Level 7.5 MG/DL (8.5-10.1) Potassium Level 3.4 MEQ/L (3.5-5.1) Chloride Level 110 MEQ/L (98-107) Imaging Last Impressions Gall Bladder Ultrasound 06/20/17 0000 Signed Impressions: Service Date/Time: Tuesday, June 20, 2017 18:37 - CONCLUSION: Cholelithiasis and findings highly suspicious for acute cholecystitis in the appropriate clinical setting. The liver is slightly echogenic which maybe due to fatty infiltration and or hepatocellular dysfunction. Tammie Singh MD PE at Discharge GENERAL: This is a well-nourished, well-developed patient, in no apparent distress. CARDIOVASCULAR: Regular rate and rhythm without murmurs, gallops, or rubs. RESPIRATORY: Clear to auscultation. Breath sounds equal bilaterally. No wheezes , rales, or rhonchi. GASTROINTESTINAL: Abdomen soft, non-tender, nondistended. Normal active bowel sounds MUSCULOSKELETAL: Extremities without clubbing, cyanosis, or edema. NEURO: Alert & Oriented x4 to person, place, time, situation. Moves all ext x4 Pt update on day of discharge Patient doing well today. Tolerating lunch brought in by family from [facility]. No pain no nausea. Discharge plans discussed with patient and significant other Hospital Course Patient is 21-year-old female came in with acute abdominal pain consistent with acute cholecystectomy. She did however scopic cholecystectomy without difficulty or, location. Patient was discharged home postoperatively. Pt Condition on Discharge: Good Discharge Disposition: Discharge Home Discharge Time: <= 30 minutes Discharge Instructions DIET: Follow Instructions for: As Tolerated, No Restrictions Activities you can perform: Regular-No Restrictions Follow up Referrals: Surgical - 1 Week with Tyrell Araujo MD New Medications: Acetaminophen-Codeine (Tylenol-Codeine #3) 300-30 mg Tab 1 TAB PO Q6H PRN for PAIN, #24 TAB 0 Refills Denise Madrid MD Jun 22, 2017 12:33
== END 2017-06-22 13:00 | disposition home or self-care (01) ==
LOC: PHED 16:12 → PHEDA 20:02 → PH3A 21:20
PROVIDERS: ADMIT Hospitalist; ATTEND Hospitalist
DX: K80.10 Calculus of gallbladder with chronic cholecystitis without obstruction (principal); E66.9 Obesity, unspecified; J45.909 Unspecified asthma, uncomplicated; F32.9 Major depressive disorder, single episode, unspecified; F41.9 Anxiety disorder, unspecified
CPT/HCPCS: 00790; 47562; 76705; 80048; 80053; 81001; 83690; 84703; 85025; 85610; 85730; 88304; 96361; 96365; 96366; 96367; 96368; 96372; 96375; 96376; 99285; G0378; J0744; J1100; J1170; J2060; J2270; J2405; J2550; J2710; J2765; J3010; J7030

== ENCOUNTER 2017-07-02 03:00 | Emergency (ER) | payer OTHER ==
[~2017-07-02] VITALS: Ht 160 cm; Wt 100.0 kg
[2017-07-02 03:00] VITALS: BP 119/64; PULSE 112; RESP 18; TEMP 98.5; O2SAT 97
[~2017-07-02 03:00] MED LIST changes: -IBUP-232 PO; -PERC5TAB12 PO; -PNV11TAB PO; +TYLETAB34 PO
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
[2017-07-02 07:49] VITALS: BP 131/71; PULSE 101; RESP 16; O2SAT 99
[2017-07-02 12:43] VITALS: BP 132/70; PULSE 110; RESP 18; O2SAT 99
[2017-07-02 16:28] VITALS: BP 134/70; PULSE 105; RESP 18; O2SAT 98
[2017-07-02 19:32] VITALS: BP 135/87; PULSE 99; RESP 16; O2SAT 100
--- NOTE | 2017-07-02 20:28 | PD ---
Physical Exam Date Seen by Provider: Jul 02, 2017 Time Seen by Provider: 20:27 Narrative For full history and physical examination please see previous note. Data Data Last Documented VS Vital Signs Date Time Temp Pulse Resp B/P (MAP) Pulse Ox O2 Delivery O2 Flow Rate FiO2 07/02/17 19:32 99 16 135/87 (103) 100 Room Air 07/02/17 03:00 98.5 Orders Orders Psych Screen (07/02/17 04:48) Diet Regular Basic (07/02/17 Breakfast) MDM Medical Record Reviewed: Yes Supervised Visit with DELORES: No Narrative Course Patient presented under Harry act last night after acting erratically and making suicidal ideations. Patient was medically cleared, she was evaluated by psychiatric nurse practitioner Harry act was lifted. Diagnosis Primary Impression: Medical clearance for psychiatric admission Referrals: Primary Care Physician Patient Instructions: General Instructions Additional Instruction: Follow-up with your primary doctor Avoid excessive intake of alcohol Follow-up with Markos Thompson Return to emergency department for any new worsening symptoms Med/Other Pt SpecificInfo: No Meds Exist/No RX given Scripts No Active Prescriptions or Reported Meds Disposition: 01 DISCHARGE HOME Condition: Stable GarcíaElvia Jul 02, 2017 20:28
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
== END 2017-07-02 21:32 | disposition home or self-care (01) ==
LOC: NEPD 03:00
DX: F43.25 Adjustment disorder with mixed disturbance of emotions and conduct (principal)
CPT/HCPCS: 99283

== ENCOUNTER 2017-09-10 10:37 | Emergency (ER) | payer OTHER ==
[2017-09-10 11:45] LABS: AUTOMATED NEUTROPHIL # 4.2 TH/MM3 (1.8-7.7); BASOPHIL # 0.1 TH/MM3 (0-0.2); BASOPHIL % 1.5 % (0.0-2.0); EOSINOPHIL # 0.1 TH/MM3 (0-0.4); EOSINOPHIL % 1.1 % (0.0-4.0); HEMATOCRIT 34.8 % (35.0-46.0); HEMO FLAGS DIFF FINAL; HEMOGLOBIN 11.4 GM/DL (11.6-15.3); LYMPH % 36.2 % (9.0-44.0); LYMPHOCYTE # 2.8 TH/MM3 (1.0-4.8); MEAN CELL VOLUME 83.5 FL (80.0-100.0); MEAN CORPUSCULAR HEMOGLOBIN 27.3 PG (27.0-34.0); MEAN CORPUSCULAR HGB CONC 32.7 % (32.0-36.0); MEAN PLATELET VOLUME 6.8 FL (7.0-11.0); MONO % 7.6 % (0.0-8.0); MONOCYTE # 0.6 TH/MM3 (0-0.9); NEUT % 53.6 % (16.0-70.0); PLATELET COUNT 397 TH/MM3 (150-450); RED BLOOD COUNT 4.17 MIL/MM3 (4.00-5.30); RED CELL DISTRIBUTION WIDTH 14.7 % (11.6-17.2); WHITE BLOOD COUNT 7.8 TH/MM3 (4.0-11.0)
[2017-09-10] MEDS: ONDANSETRON ODT 4 MG TAB PO (11:51)
[2017-09-10] MEDS: IBUPROFEN 600 MG TAB PO (11:52)
[2017-09-10 11:55] LABS: CHLORIDE 106 MEQ/L (98-107); POTASSIUM 3.5 MEQ/L (3.5-5.1); SODIUM (NA) 139 MEQ/L (136-145)
[2017-09-10 11:57] LABS: CALCIUM 8.8 MG/DL (8.5-10.1)
[2017-09-10 11:58] LABS: ANION GAP 5 MEQ/L (5-15); BICARBONATE 27.6 MEQ/L (21.0-32.0); BLOOD UREA NITROGEN 20 MG/DL (7-18); GLUCOSE,RANDOM 137 MG/DL (74-106)
[2017-09-10 12:01] LABS: GLOMERULAR FILTRATION RATE 104 ML/MIN (>89)
[2017-09-10 12:07] LABS: CREATINE KINASE 27 U/L (26-192)
[2017-09-10 12:10] LABS: BILIRUBIN, URINE NEG (NEG); BLOOD, URINE NEG (NEG); GLUCOSE,URINE NEG (NEG); KETONE, URINE NEG (NEG); NITRITE,URINE NEG (NEG); PH, URINE 5.5 (5.0-8.5); URINE COLOR YELLOW (YELLW/STRAW); URINE LEUKOCYTE ESTERASE NEG (NEG)
[2017-09-10 12:12] LABS: METHOD OF COLLECTION CLEAN CATCH
[2017-09-10 12:15] LABS: COMMENT (UR) CULT NOT INDICATED; CULTURE IF INDICATED CULT NOT INDICATED; RBC, URINE 0-3 /hpf (0-3); SQUAMOUS EPITHELIAL CELL URINE 0-5 /hpf (0-5)
== END 2017-09-10 13:15 | disposition home or self-care (01) ==
LOC: PHED 10:37
DX: M79.604 Pain in right leg (principal); M79.605 Pain in left leg; F32.9 Major depressive disorder, single episode, unspecified; F41.9 Anxiety disorder, unspecified; F90.9 Attention-deficit hyperactivity disorder, unspecified type; J45.909 Unspecified asthma, uncomplicated
CPT/HCPCS: 80048; 81001; 82550; 85025; 93970; 99284